=== PATIENT | male | born 1995 | race African-American/Black ===

== ENCOUNTER 2018-04-13 14:04 | Emergency (ER) | payer OTHER ==
[~2018-04-13] VITALS: Ht 175.3 cm; Wt 72.6 kg
[2018-04-13 14:22] VITALS: BP 120/58
--- NOTE | 2018-04-13 15:56 | PHYS DOC ---
Past Medical History Past Medical History: No Pertinent History Past Surgical History: No Surgical History Alcohol Use: None Drug Use: None Adult General Chief Complaint Chief Complaint: FOOT INJURY PAIN HPI HPI 22 y/o male presents to ER for c/o lt foot pain/swelling after dropping heavy box on his foot last night. Pt had steel toed boots on at time of injury. Patient reports he has been walking and able to put weight on his left foot but does have increased pain. Pt denies any other injuries. Pt denies any OTC meds for pain. Pt denies lt ankle pain. Review of Systems Review of Systems Constitutional: Denies fever or chills [] Musculoskeletal: Reports lt foot pain- denies ankle pain Integument: Denies open wounds Neurologic: Denies headache, focal weakness or sensory changes [] All other systems were reviewed and found to be within normal limits, except as documented in this note. Physical Exam Physical Exam Constitutional: Well developed, well nourished, no acute distress, non-toxic appearance. [] Neck: Normal range of motion, supple Cardiovascular: Heart rate regular Lungs & Thorax: Resp. equal/nonlabored Skin: Warm, dry, no open wounds Back: Full ROM Extremities: No cyanosis, no clubbing, ROM intact in lt ankle- decreased ROM in toes with swelling in foot. Ecchymosis on dorsal surface lt foot- no abrasions/ wounds. No calcaneus or malleolus tenderness lt LE. Rt LE exam NL. 2+ dorsalis pedis/posterior tibial. Neurologic: Alert and oriented X 3, normal motor function, normal sensory function, no focal deficits noted. [] Psychologic: Affect normal, judgement normal, mood normal. [] Current Patient Data Vital Signs Vital Signs Date Time Temp Pulse Resp B/P (MAP) Pulse Ox O2 Delivery O2 Flow Rate FiO2 04/13/18 14:22 98.9 67 18 120/58 (78) 97 Room Air 98.9 EKG EKG [] Radiology/Procedures Radiology/Procedures PROCEDURE: FOOT LEFT 3V Left foot radiograph 04/13/2018 2:42 PM INDICATION: Left foot injury COMPARISON: None available. TECHNIQUE: 3 views of the left foot are provided. FINDINGS: There is a transversely oriented mildly displaced fracture involving the distal one third of the third metatarsal. Bone mineralization is within normal limits. Joint spaces are maintained. Regional soft tissue swelling. There is no soft tissue gas or osseous erosion. IMPRESSION: Mildly displaced, transversely oriented fracture involving the distal one third of the third metatarsal. Electronically signed by: Antwon Rivers MD (04/13/2018 3:07 PM) [id number] DICTATED and SIGNED BY: ANTWON RIVERS MD DATE: 04/13/18 1506 Course & Med Decision Making Course & Med Decision Making Pertinent Imaging studies reviewed. (See chart for details) 1540: Discussed pt's case with Dr. Kendall as there are issues with PACS and getting transmission of imaging. Patient has obvious third metatarsal fracture. Patient was advised of this finding and plans for Maximo wrap, postop shoe, and crutches to be provided. Patient advised he would need follow-up with orthopedic doctor and he is to call as soon as possible to schedule appointment. Will provide or so referral information on discharge paperwork. Patient advised on use of [id number] Tylenol and/or ibuprofen as needed for pain. Patient advised and symptoms to return to ER for. Education on RICE acronym provided. Discharge instructions were discussed. Patient has remained neuro and vascular intact in left lower extremity. Patient was offered dose of ibuprofen however preferred to wait until he got home to take medication. Staff Physician Addendum: I was working in the ER during the course of this patient's visit. I was available for consultation as needed, but I was not directly involved in the care of this patient. Dragon Disclaimer Dragon Disclaimer This electronic medical record was generated, in whole or in part, using a voice recognition dictation system. Departure Departure Impression: Primary Impression: Foot fracture, left Disposition: 01 HOME, SELF-CARE Condition: STABLE Referrals: NO PCP (PCP) Patient Instructions: Crutch Use, Elastic Bandage and RICE, Foot Fracture Additional Instructions: Wear the Maximo wrap and postop shoe as discussed until follow-up with orthopedic doctor. Dr. Galaviz orthopedic doctor [phone] call as soon as possible to schedule appointment. Tylenol and/or ibuprofen as needed for pain control as directed on container. MALAIKA LEYVA APRN Apr 13, 2018 15:56 YAHAIRA KENDALL MD Apr 15, 2018 02:55
--- NOTE | 2018-04-13 16:17 | RAD ---
Left foot radiograph 04/13/2018 2:42 PM INDICATION: Left foot injury COMPARISON: None available. TECHNIQUE: 3 views of the left foot are provided. FINDINGS: There is a transversely oriented mildly displaced fracture involving the distal one third of the third metatarsal. Bone mineralization is within normal limits. Joint spaces are maintained. Regional soft tissue swelling. There is no soft tissue gas or osseous erosion. IMPRESSION: Mildly displaced, transversely oriented fracture involving the distal one third of the third metatarsal. Electronically signed by: Modesta Cohen MD (04/13/2018 3:07 PM) [id number]
== END 2018-04-13 16:40 | disposition home or self-care (01) ==
LOC: ER 14:04 → EDSEX 14:04 → ER 16:40
DX: S92.332A Displaced fracture of third metatarsal bone, left foot, initial encounter for closed fracture (principal); W20.8XXA Other cause of strike by thrown, projected or falling object, initial encounter; Y93.89 Activity, other specified; Y92.89 Other specified places as the place of occurrence of the external cause; Y99.8 Other external cause status
CPT/HCPCS: 73630; 99283